=== PATIENT | female | born 1955 | race Caucasian/White ===

== ENCOUNTER → 2016-08-31 | Outpatient (CLI) | payer BC ==
[2016-02-22 10:56] VITALS: BP 125/86
--- NOTE | 2016-08-31 14:27 | KCIC ---
PROCEDURE MRI cervical spine without contrast. HISTORY Stenosis. Left hand numbness. Left-sided neck pain and headaches. TECHNIQUE Sagittal T1, sagittal T2, sagittal STIR, axial T2, and axial T2 gradient sequences are provided. COMPARISON None. FINDINGS There is no malalignment. Edema is noted in the lateral masses at C3 and C4 on the left, probably degenerative. Facet hypertrophy is much greater on the left. There is no worrisome marrow lesion. There is no cord signal abnormality. The cervicomedullary junction is unremarkable. Degenerative findings by individual level are as follows: C2-C3: There is left facet hypertrophy with mild left foraminal narrowing. C3-C4: There is left facet hypertrophy, moderate, with at least mild to moderate left foraminal narrowing. C4-C5: There is mild to moderate left facet hypertrophy and mild left uncinate process spurring. There is mild left foraminal narrowing. C5-C6: There is a disc osteophyte complex. There is mild uncinate process spurring which is greater on the right. There is mild to moderate right foraminal narrowing. C6-C7: There is a disc osteophyte complex. There is minimal right and mild left uncinate process spurring. Midline AP diameter of the thecal sac is minimally narrowed to 10 millimeters. There is minimal foraminal narrowing. C7-T1: There is no canal or foraminal compromise. IMPRESSION Mild degenerative changes in the cervical spine are greatest at C5-C6 where there is minimal canal stenosis and mild to moderate right foraminal narrowing and at C3-C4 where there is mild to moderate left foraminal narrowing. Electronically signed by: Jac Hawkins MD (Aug 31, 2016 14:26:58)
== END | disposition home or self-care (01) ==
LOC: KCIC MRI 12:43
PROVIDERS: ATTEND Orthopaedic Surgery
DX: M48.02 Spinal stenosis, cervical region (principal)
CPT/HCPCS: 72141

== ENCOUNTER → 2016-11-14 | Outpatient (CLI) | payer BC ==
[2016-02-22 10:56] VITALS: BP 125/86
[~2016-11-14] MED LIST: ACET500T68 PO; ATOR40TA59 PO; CELE200C PO; GADOBUTROL 10 MMOL/10 ML VIAL IV ONE
--- NOTE | 2016-11-14 14:50 | KCIC ---
PROCEDURE MRI lumbar spine without contrast. HISTORY Chronic pain, right lower leg pain for several months TECHNIQUE Multiplanar, multi sequential non contrast MR imaging was performed of the lumbar spine. COMPARISON None FINDINGS There is mild grade 1 anterior spondylolisthesis at L5-S1. Lumbar vertebral body stature is preserved. There is mild to moderate degenerative disc disease at L5-S1 and minimally at L3-4 and L2-3. There is hemangioma of the T12 vertebral body. Conus terminates normally at T12-L1. L2-3: This level was not included on the axial images. There is minimal disc osteophyte complex and bulge. Spinal canal and neural foramina are adequate. L3-4: Spinal canal and neural foramina are adequate. There is very shallow protrusion in the inferior right neural foramen with associated annular tear without significant neural impingement. There is mild buckling of the ligamentum flavum. L4-5: There is mild buckling of the ligamentum flavum. There is minimal facet degenerative change. There is negligible bulge. Neural foramina are adequate. There is mild narrowing of the far left lateral recess. L5-S1: There is moderate facet degenerative change. There is mild partial uncovering of the posterior aspect of the disc due to spondylolisthesis. There is minimal superimposed disc osteophyte complex greater in the inferior left neural foramen. There is mild narrowing of the far right lateral recess. There is minimal narrowing of the inferior left neural foramen, right neural foramen adequate. IMPRESSION 1. There is no significant lumbar spinal stenosis, mild narrowing of the far right lateral recess at L5-S1 and of the far left lateral recess at L4-5. There is mild narrowing of the inferior left L5-S1 neural foramen. There is mild to moderate degenerative disc disease at L5-S1, minimally at L3-4 and L2-3. 2. There is very mild grade 1 anterior spondylolisthesis at L5-S1 due to facet degenerative change. Electronically signed by: James Vieira MD (Nov 14, 2016 14:49:35)
--- NOTE | 2016-11-14 15:27 | KCIC ---
PROCEDURE MRI brain without and with contrast. HISTORY Left arm pain, numbness from the left elbow to the wrist for several months TECHNIQUE Multiplanar, multi sequential, pre and post contrast MR imaging was performed of the brain. Contrast: 8 cc Gadavist COMPARISON May 15, 2009 FINDINGS There is no restricted diffusion suggestive of recent infarct or cytotoxic edema. There is no intra-axial mass effect, midline shift, extra-axial fluid collection, or nodular parenchymal or leptomeningeal enhancement. There is again mild T2 and FLAIR hyperintense signal abnormality of the supratentorial periventricular white matter bilaterally. There are multiple scattered small foci in the deep white matter greatest of the frontal parietal lobes overall more numerous than previously. These are not associated with enhancement. There is preservation of the major arterial intracranial flow voids at the skull base. There is right masood bullosa. There is new signal abnormality in the posterior sphenoid sinus, may be due to mucous retention cysts versus air-fluid levels. There is patchy mild fluid and thickening of the left mastoid air cells. There is preservation of the major arterial intracranial flow voids at the skull base. Ventricles, sulci, cisterns are within normal limits in size and configuration. There is preservation of the marrow signal of the clivus. Cerebellar tonsils are normal in location. There is no significant abnormality of the pineal gland or pituitary gland. There is nonspecific increased CSF signal of the optic nerve sheaths. Small focus of enhancement along the left tentorium is more likely due to more prominent veins than small mass. IMPRESSION 1. There are some scattered foci of T2 and FLAIR hyperintense signal abnormality of the frontal parietal white matter overall more numerous than the 2009 exam. White matter changes can be seen in patients with migraine headaches if corresponding history. Sequela of chronic microvascular ischemic disease would be a consideration especially if there is history of hypertension or diabetes. Pattern is not particularly suggestive of an inflammatory demyelinating disease. There is no abnormal intracranial enhancement. 2. There are now uterine dependent mucous retention cyst or air-fluid levels of the sphenoid sinus. Electronically signed by: James Vieira MD (Nov 14, 2016 15:25:59)
== END | disposition home or self-care (01) ==
LOC: KCIC MRI 13:33
PROVIDERS: ATTEND Psychiatry & Neurology Neurology
DX: M51.37 Other intervertebral disc degeneration, lumbosacral region (principal); M51.36 Other intervertebral disc degeneration, lumbar region; M43.17 Spondylolisthesis, lumbosacral region
CPT/HCPCS: 70553; 72148; A9585

== ENCOUNTER 2017-03-14 08:30 | Emergency (ER) | payer BC ==
[~2017-03-14] VITALS: Ht 162.6 cm; Wt 85.9 kg
[~2017-03-14 08:30] MED LIST changes: -GADOBUTROL 10 MMOL/10 ML VIAL IV ONE
[2017-03-14 08:39] VITALS: BP 170/90
--- NOTE | 2017-03-14 08:55 | ED.ADGEN ---
Past Medical History Past Medical History: Arthritis, High Cholesterol Past Surgical History: Appendectomy, Other Additional Past Surgical Histo: cyst removed L wrist, 2002 stomach SX, R forearm SX, R shoulder SX Additional Information: 1 ppd Alcohol Use: Rarely Drug Use: None Adult General Chief Complaint Chief Complaint: MECHANICAL FALL HPI HPI Patient is a 61 year old female who presents with persistent left wrist pain after falling 1 week ago. Patient has been treating pain with the splint and [id number] medication. Patient's concerned because continues to hurt. Denies motor weakness loss of sensation. No other symptoms or complaints. Review of Systems Review of Systems Review symptoms as per history of present illness. All other review symptoms are negative. Allergies Allergies Allergies Coded Allergies Type Severity Reaction Last Updated Verified No Known Drug Allergies 02/22/16 No Physical Exam Physical Exam Constitutional: Well developed, well nourished, no acute distress, non-toxic appearance. [] Extremities: Left wrist, no deformity, gross swelling. Soft tissue tenderness over the extensor is a proximal wrist. Minimal pain with range of motion. No tenderness in an anatomical snuffbox. [] Neurologic: Alert and oriented X 3, asked upper extremity, no motor weakness or loss of sensation. [] Current Patient Data Vital Signs Vital Signs Date Time Temp Pulse Resp B/P (MAP) Pulse Ox O2 Delivery O2 Flow Rate FiO2 03/14/17 08:39 98.2 94 16 95 Room Air 98.2 EKG EKG [] Radiology/Procedures Radiology/Procedures [] Course & Med Decision Making Course & Med Decision Making Pertinent Labs and Imaging studies reviewed. (See chart for details) [Persistent left wrist pain consistent with sprain or soft tissue injury. Patient declines supportive care in the ED. Recommend continued supportive measures and PCP follow up. . Piper Disclaimer Dragon Disclaimer This electronic medical record was generated, in whole or in part, using a voice recognition dictation system. SANDRA HERNANDEZ DO Mar 14, 2017 08:55
== END 2017-03-14 08:50 | disposition home or self-care (01) ==
LOC: ER 08:30
DX: M25.532 Pain in left wrist (principal); E78.00 Pure hypercholesterolemia, unspecified; M19.90 Unspecified osteoarthritis, unspecified site; F17.200 Nicotine dependence, unspecified, uncomplicated; Z90.49 Acquired absence of other specified parts of digestive tract; W18.39XA Other fall on same level, initial encounter; Y93.89 Activity, other specified; Y99.8 Other external cause status; Y92.89 Other specified places as the place of occurrence of the external cause
CPT/HCPCS: 99281

== ENCOUNTER 2018-11-09 15:20 | Emergency (ER) | payer BC ==
[~2018-11-09] VITALS: Ht 162.6 cm; Wt 90.7 kg
[2018-11-09] MEDS ORDERED: IPRATRPIUM/ALBUTEROL 0.5/2.5MG 3 ML NEBU. NEB ONE (15:45)
[2018-11-09] MEDS ORDERED: predniSONE 10 MG TABLET PO ONE (15:45)
[2018-11-09] MEDS ORDERED: IV NORMAL SALINE 1000ML BAG 1,000 ML IV ONE (15:45)
--- NOTE | 2018-11-09 15:49 | PHYS DOC ---
Past Medical History Past Medical History: Arthritis, High Cholesterol (DAVIDSON PANTOJA APRN) Past Surgical History: Appendectomy, Other Additional Past Surgical Histo: cyst removed L wrist, 2003 stomach SX, R forearm SX, R shoulder SX (DAVIDSON PANTOJA APRN) Alcohol Use: Rarely Drug Use: None (DAVIDSON PANTOJA APRN) Adult General Chief Complaint Chief Complaint: CHEST PAIN HPI HPI 63-year-old female presents to ER via POV for complaints of mid chest pressure which radiates into her shoulders. She reports pain has been ongoing intermittently for the past 5-6 days she reports pain radiates into bilateral shoulders. She reports pain increases with long walks and at rest pain improves. She denies any shortness of air, nausea, or diaphoresis. She reports she has had an intermittent nonproductive cough and is a daily smoker. Patient denies any recent travel/hx blood clots. She denies swelling, fever, urinary sxs or change in appetitie. She reports she was seen by her primary care physician last week and was told her H&H was elevated. He is scheduled with a project planner on 11/17/18. (DAVIDSON PANTOJA APRN) Review of Systems Review of Systems Constitutional: Denies fever or chills. Denies weakness Eyes: Denies change in visual acuity, redness, or eye pain [] HENT: Denies nasal congestion or sore throat [] Respiratory: Reports nonprod. cough with SOA- reporting SOA increases with walking Cardiovascular: Reports mid chest pressure which radiates into her shoulders GI: Denies abdominal pain, nausea, vomiting, bloody stools or diarrhea [] : Denies dysuria or hematuria [] Musculoskeletal: Denies back pain. Reports pressure in her chest radiates into shoulders when her SOA increases Integument: Denies rash or skin lesions [] Neurologic: Denies headache, focal weakness or sensory changes [] Endocrine: Denies polyuria or polydipsia [] All other systems were reviewed and found to be within normal limits, except as documented in this note. (DAVIDSON PANTOJA APRN) Current Medications Current Medications Current Medications Medications (Trade) Dose Ordered Sig/Suyapa Start Time Stop Time Status Last Admin Dose Admin Albuterol/ Ipratropium (Duoneb) 3 ml 1X ONCE 4/5/19 15:45 11/09/18 15:48 DC 11/09/18 16:01 3 ML Prednisone (Prednisone) 50 mg 1X ONCE 11/09/18 15:45 11/09/18 15:48 DC 11/09/18 16:40 50 MG Sodium Chloride 1,000 ml @ 1,000 mls/hr 1X ONCE 11/09/18 15:45 11/09/18 16:44 DC 11/09/18 16:39 1,000 MLS/HR (FERNANDO PERRY MD) Allergies Allergies Allergies Coded Allergies Type Severity Reaction Last Updated Verified No Known Drug Allergies 02/22/16 No (FERNANDO PERRY MD) Physical Exam Physical Exam Constitutional: Well developed, well nourished, no acute distress, non-toxic appearance. Clear speech- speaking in full sentences HENT: Normocephalic, atraumatic, bilateral ears normal, mucous membranes pink/ dry, no oral exudates, nose normal. [] Eyes: Pupils equal, conjunctiva normal, no discharge. [] Neck: Normal range of motion, no tenderness, supple, no stridor. Trachea midline Cardiovascular: Heart rate regular rhythm, no murmur [] Lungs & Thorax: Expiratory wheezing RUL- diminished air movement throughout all lung enriquez w/less air movement in bases. Resp. equal/nonlabored Abdomen: Bowel sounds normal, soft, no tenderness, no masses, no pulsatile masses. [] Skin: Warm, dry, no erythema, no rash. [] Back: No tenderness, no CVA tenderness. [] Extremities: No tenderness, no cyanosis, no clubbing, ROM intact, no edema. [] Neurologic: Alert and oriented X 3, normal motor function, normal sensory function, no focal deficits noted. [] Psychologic: Affect normal, judgement normal, mood normal. [] (REFFITT,DAVIDSON Segura APRN) Current Patient Data Vital Signs Vital Signs Date Time Temp Pulse Resp B/P (MAP) Pulse Ox O2 Delivery O2 Flow Rate FiO2 11/09/18 17:30 86 17 140/79 (99) 94 Room Air 11/09/18 15:30 98.4 98.4 (FERNANDO PERRY MD) Lab Values Laboratory Tests Test 11/09/18 16:50 11/09/18 17:30 White Blood Count 9.4 x10^3/uL (4.0-11.0) Red Blood Count 4.94 x10^6/uL (3.50-5.40) Hemoglobin 15.9 g/dL (12.0-15.5) H Hematocrit 47.2 % (36.0-47.0) H Mean Corpuscular Volume 96 fL (79-100) Mean Corpuscular Hemoglobin 32 pg (25-35) Mean Corpuscular Hemoglobin Concent 34 g/dL (31-37) Red Cell Distribution Width 13.6 % (11.5-14.5) Platelet Count 260 x10^3/uL (140-400) Neutrophils (%) (Auto) 58 % (31-73) Lymphocytes (%) (Auto) 30 % (24-48) Monocytes (%) (Auto) 7 % (0-9) Eosinophils (%) (Auto) 3 % (0-3) Basophils (%) (Auto) 1 % (0-3) Neutrophils # (Auto) 5.5 x10^3uL (1.8-7.7) Lymphocytes # (Auto) 2.8 x10^3/uL (1.0-4.8) Monocytes # (Auto) 0.7 x10^3/uL (0.0-1.1) Eosinophils # (Auto) 0.3 x10^3/uL (0.0-0.7) Basophils # (Auto) 0.1 x10^3/uL (0.0-0.2) Sodium Level 145 mmol/L (136-145) Potassium Level 4.1 mmol/L (3.5-5.1) Chloride Level 106 mmol/L (98-107) Carbon Dioxide Level 28 mmol/L (21-32) Anion Gap 11 (6-14) Blood Urea Nitrogen 10 mg/dL (7-20) Creatinine 0.8 mg/dL (0.6-1.0) Estimated GFR (Cockcroft-Gault) 72.7 BUN/Creatinine Ratio 13 (6-20) Glucose Level 104 mg/dL (70-99) H Calcium Level 9.5 mg/dL (8.5-10.1) Magnesium Level 2.3 mg/dL (1.8-2.4) Total Bilirubin 0.4 mg/dL (0.2-1.0) Aspartate Amino Transferase (AST) 24 U/L (15-37) Alanine Aminotransferase (ALT) 31 U/L (14-59) Alkaline Phosphatase 94 U/L (46-116) Troponin I Quantitative < 0.017 ng/mL (0.000-0.055) Total Protein 7.0 g/dL (6.4-8.2) Albumin 3.5 g/dL (3.4-5.0) Albumin/Globulin Ratio 1.0 (1.0-1.7) Urine Collection Type Unknown Urine Color Yellow Urine Clarity Clear Urine pH 6.0 Urine Specific [place] <=1.005 Urine Protein Negative mg/dL (NEG-TRACE) Urine Glucose (UA) Negative mg/dL (NEG) Urine Ketones (Stick) Negative mg/dL (NEG) Urine Blood Negative (NEG) Urine Nitrite Negative (NEG) Urine Bilirubin Negative (NEG) Urine Urobilinogen Dipstick 0.2 mg/dL (0.2 mg/dL) Urine Leukocyte Esterase Small (NEG) Urine RBC 0 /HPF (0-2) Urine WBC 11-20 /HPF (0-4) Urine Squamous Epithelial Cells Few /LPF Urine Bacteria Few /HPF (0-FEW) Laboratory Tests 11/09/18 16:50 Laboratory Tests 11/09/18 16:50 Microbiology 11/09/18 Urine Culture - Final, Complete 11/09/18 Urine Culture Result 1 (ELIUD) - Final, Complete 11/09/18 Antimicrobic Susceptibility - Final, Complete (FERNANDO PERRY MD) Lab Values Microbiology 11/09/18 Urine Culture - Preliminary, Resulted 11/09/18 Urine Culture Result 1 (ELIUD) - Preliminary, Resulted (DAVIDSON PANTOJA APRN) EKG EKG Ekg obtained 11/09/18 at 1533 Interpreted by ER physician Sinus rhythm Rate 91 No STEMI (DAVIDSON PANTOJA APRN) Radiology/Procedures Radiology/Procedures PROCEDURE: CHEST PA & LATERAL CHEST PA LATERAL History: MID CHEST PRESSURE / PAIN Comparison: Two-view chest, May 15, 2009. Findings: The cardiomediastinal silhouette is normal. Pulmonary vasculature is normal. The lungs are clear. No pleural effusion or pneumothorax is seen. There is no acute bone abnormality. IMPRESSION: No acute cardiopulmonary process. Electronically signed by: Michael Soares MD (11/09/2018:06 PM) [id number] DICTATED and SIGNED BY: MICHAEL SOARES MD DATE: 11/09/18 5657 (DAVIDSON PANTOJA APRN) Course & Med Decision Making Course & Med Decision Making Pertinent Labs and Imaging studies reviewed. (See chart for details) Pt evaluated in the ER from the chest pressure which radiated into her shoulders which is been ongoing for 4-5 days. Patient was found to have decreased air movement throughout all lung enriquez with expiratory wheezing on initial exam. Patient was provided with DuoNeb treatment and dose of prednisone with improved symptoms. Patient had labs and chest x-ray. Labs elevated H&H which patient reported she has scheduled appointment with project planner as her H& H has been elevated all recent labs. Patient had EKG with no acute ST elevated < 0.017. Pt reported she is a daily smoker so smoking cessation was discussed. Discussed with symptoms ongoing for 4-5 days and negative troponin plans were for home discharge prescription for prednisone which she will start tomorrow. Patient encouraged to increase fluid intake. Chest x-ray was negative for acute findings. At time of reevaluation and after DuoNeb treatment patient has clear lung sounds in all enriquez with no expiratory wheezing and increased air movement. Patient has appointment scheduled with her project planner on 11/17/18 to further evaluate her elevated H&H. Patient has been afebrile. She reports she has had recurrent bronchitis throughout the when her at this time with clear lung sounds and patient having improved symptoms will hold off on antibiotic treatment.Education provided on signs and symptoms to return to ER. Discharge instructions were discussed. Patient to follow-up with primary care physician if symptoms persist or with any concerns. 11/12/18 3375: Patient had been seen in the ER on 11/09/18 and had UA obtained just prior to discharge from the ER. On further evaluation of her chart UA came back with small leuks negative nitrates or blood and Celestino had 11-20 WBCs. Call was placed to patient to discuss her UA results. Patient reports her other symptoms had improved with less chest pressure following a few days of prednisone. She reports she has follow-up appointment scheduled tomorrow with her primary care physician. She has had intermittent dysuria over the past couple of weeks discussed antibiotics and will: Prescription for patient to [facility] phone number [phone] for Keflex 500 mg by mouth 7 days. Patient advised to discuss this with her doctor and have reevaluation following completion of antibiotics. Patient advised with concerns she could return to ER for reevaluation and further care. (DAVIDSON PANTOJA APRN) Course & Med Decision Making Staff Physician Addendum: I was working in the ER during the course of this patient's visit. I was available for consultation as needed, but I was not directly involved in the care of this patient. (FERNANDO PERRY MD) Dragon Disclaimer Dragon Disclaimer This electronic medical record was generated, in whole or in part, using a voice recognition dictation system. (DAVIDSON PANTOJA APRN) Departure Departure Impression: Primary Impression: Chest pain Additional Impression: Cough Disposition: 01 HOME, SELF-CARE Condition: STABLE Referrals: ROSSANA GRANADO DO (PCP) Patient Instructions: Chest Pain (Nonspecific), Cough, Adult Additional Instructions: Drink plenty of fluids. Avoid smoking. Start prednisone prescription tomorrow. Follow-up with your primary doctor if symptoms persist or worsen. Tylenol and/or ibuprofen as needed for pain as directed on container. Scripts Prednisone (PREDNISONE) 50 Mg Tablet 1 TAB PO DAILY, #4 TAB 0 Refills Start on 11/10/18 Prov: DAVIDSON PANTOJA APRN 11/09/18 Problem Qualifiers DAVIDSON PANTOJA APRN Nov 09, 2018 15:49 FERNANDO PERRY MD Nov 21, 2018 18:29
--- NOTE | 2018-11-09 16:07 | EKG ---
[facility] [address] [place] [address] Test Date: 2018-11-09 Test Time: 15:33:50 Pat Name: RUSH ROBLES Department: Room: Gender: F Senior Strategy Analyst: : [id number] Requested By: DAVIDSON PANTOJA Order Number: [id number] Reading MD: Vito Schreiber MD Measurements Intervals [place] Rate: 91 P: 49 CO: 154 QRS: 9 QRSD: 88 T: 66 QT: 348 QTc: 430 Interpretive Statements SINUS RHYTHM LEFT ATRIAL ABNORMALITY QRS(T) CONTOUR ABNORMALITY CONSISTENT WITH ANTEROSEPTAL INFARCT AGE UNDETERMINED T ABNORMALITY IN HIGH LATERAL LEADS ABNORMAL ECG Electronically Signed On 11-13-2018 15:11:40 CDT by Vito Schreiber MD
--- NOTE | 2018-11-09 16:09 | RAD ---
CHEST PA LATERAL History: MID CHEST PRESSURE / PAIN Comparison: Two-view chest, May 15, 2009. Findings: The cardiomediastinal silhouette is normal. Pulmonary vasculature is normal. The lungs are clear. No pleural effusion or pneumothorax is seen. There is no acute bone abnormality. IMPRESSION: No acute cardiopulmonary process. Electronically signed by: Michael Soares MD (11/09/2018 4:06 PM) [id number]
[2018-11-09 17:00] LABS: BASO # 0.1 x10^3/uL (0.0-0.2); BASO % 1 % (0-3); EOS # 0.3 x10^3/uL (0.0-0.7); EOS % 3 % (0-3); HEMATOCRIT 47.2 % (36.0-47.0); HEMOGLOBIN 15.9 g/dL (12.0-15.5); LYMPH # 2.8 x10^3/uL (1.0-4.8); LYMPH % 30 % (24-48); MEAN CORPUSCULAR HEMOGLOBIN 32 pg (25-35); MEAN CORPUSCULAR HGB CONC 34 g/dL (31-37); MEAN CORPUSCULAR VOLUME 96 fL (79-100); MONO # 0.7 x10^3/uL (0.0-1.1); MONO % 7 % (0-9); NEUT # 5.5 x10^3uL (1.8-7.7); NEUT % 58 % (31-73); PLATELET COUNT 260 x10^3/uL (140-400); RED BLOOD COUNT 4.94 x10^6/uL (3.50-5.40); RED CELL DISTRIBUTION WIDTH 13.6 % (11.5-14.5); WHITE BLOOD COUNT 9.4 x10^3/uL (4.0-11.0)
[2018-11-09 17:10] LABS: CALCIUM 9.5 mg/dL (8.5-10.1); CREATININE 0.8 mg/dL (0.6-1.0); GFR 72.7; POTASSIUM 4.1 mmol/L (3.5-5.1)
[2018-11-09 17:16] LABS: ALBUMIN 3.5 g/dL (3.4-5.0); MAGNESIUM 2.3 mg/dL (1.8-2.4); TOTAL BILIRUBIN 0.4 mg/dL (0.2-1.0)
[2018-11-09 17:30] VITALS: BP 140/79
[2018-11-09 17:36] LABS: BILIRUBIN,URINE NEGATIVE (NEG); CLARITY,URINE CLEAR; COLOR,URINE YELLOW; NITRITE,URINE NEGATIVE (NEG); PROTEIN,URINE NEGATIVE (NEG-TRACE); UROBILINOGEN,URINE 0.2 mg/dL (0.2 mg/dL)
[2018-11-09 17:48] LABS: BACTERIA,URINE FEW /HPF (0-FEW); RBC,URINE 0 /HPF (0-2)
[2018-11-09 17:49] LABS: SQUAMOUS EPITHELIAL CELL,UR FEW /LPF
[2018-11-09] MEDS ORDERED: PRED50TA PO (17:51)
== END 2018-11-09 18:00 | disposition home or self-care (01) ==
LOC: ER 15:20
DX: R07.89 Other chest pain (principal); R05 Cough; M19.90 Unspecified osteoarthritis, unspecified site; E78.00 Pure hypercholesterolemia, unspecified; Z90.89 Acquired absence of other organs
CPT/HCPCS: 36415; 71046; 80053; 81001; 83735; 84484; 85025; 87086; 93005; 94640; 99284; J7030; J7512; J7620; 87186

== ENCOUNTER 2020-10-06 19:03 | Observation (INO) | payer BC ==
[~2020-10-06] VITALS: Ht 162.6 cm; Wt 97.5 kg
[~2020-10-06 19:03] MED LIST changes: +PRED50TA PO
[2020-10-06] MEDS ORDERED: IV NORMAL SALINE 1000ML BAG 1,000 ML IV ONE (19:15)
[2020-10-06 19:36] LABS: BASO # 0.1 x10^3/uL (0.0-0.2); BASO % 1 % (0-3); EOS # 0.2 x10^3/uL (0.0-0.7); EOS % 2 % (0-3); HEMATOCRIT 46.6 % (36.0-47.0); LYMPH % 28 % (24-48); MEAN CORPUSCULAR HEMOGLOBIN 33 pg (25-35); MEAN CORPUSCULAR HGB CONC 34 g/dL (31-37); MEAN CORPUSCULAR VOLUME 97 fL (79-100); MONO # 0.7 x10^3/uL (0.0-1.1); MONO % 7 % (0-9); NEUT # 6.5 x10^3/uL (1.8-7.7); NEUT % 62 % (31-73); PLATELET COUNT 309 x10^3/uL (140-400); RED BLOOD COUNT 4.82 x10^6/uL (3.50-5.40); RED CELL DISTRIBUTION WIDTH 14.5 % (11.5-14.5); WHITE BLOOD COUNT 10.5 x10^3/uL (4.0-11.0)
[2020-10-06 19:45] LABS: PROTHROMBIN TIME PATIENT 11.9 SEC (11.7-14.0)
--- NOTE | 2020-10-06 19:58 | PHYS DOC ---
Past Medical History Past Medical History: Arthritis, High Cholesterol Additional Past Medical Histor: heart murmur, left arm nerve issues Past Surgical History: Appendectomy, Tonsillectomy, Other Additional Past Surgical Histo: cyst removed L wrist, 2003 stomach SX, R forearm SX, R shoulder SX Smoking Status: Current Every Day Smoker Alcohol Use: Rarely Drug Use: None General Adult EDM: Chief Complaint: CHEST PAIN HPI: HPI: Patient is a 65-year-old female with a history of high cholesterol who presents to the emergency department with complaints of chest pain. She states the pain began 2 months ago, occurs while she is walking her dog and subsides when she rests. States the pain always last less than 5 minutes. She states the pain is a central chest sharpness with no radiation. She denies any symptoms associated with the pain. She states she has had a stress test many years ago and does not remember the results. She does have a family history of heart disease in her grandparents, parents, brother. She is a current every day smoker and has been for the past 40 years. She denies any recent long distance travel, personal history of malignancy, previous history of PE/DVT, or surgeries in the last 4 weeks. Denies trauma. Denies cough. Denies known exposure to COVID-19. Review of Systems: Review of Systems: Constitutional: Denies fever or chills Eyes: Denies redness or eye pain HENT: Denies nasal congestion or sore throat Respiratory: Denies cough or shortness of breath Cardiovascular: Admits chest pain, denies palpitations GI: Denies abdominal pain, nausea, or vomiting : Denies dysuria or hematuria Musculoskeletal: Denies back pain or joint pain Integument: Denies rash or skin lesions Neurologic: Denies headache, focal weakness or sensory changes Complete systems were reviewed and found to be within normal limits, except as documented in this note. Heart Score: HEART Score for Chest Pain: HEART Score for Chest Pain Response (Comments) Value History Moderately Suspicious 1 ECG Normal 0 Age >45 - < 65 1 Risk Factors >3 Risk Factors or Hx CAD 2 Troponin < Normal Limit 0 Total 4 Risk Factors: Risk Factors: DM, Current or recent (<one month) smoker, HTN, HLP, family history of CAD, obesity. Risk Scores: Score 0 - 3: 2.5% MACE over next 6 weeks - Discharge Home Score 4 - 6: 20.3% MACE over next 6 weeks - Admit for Clinical Observation Score 7 - 10: 72.7% MACE over next 6 weeks - Early Invasive Strategies Family History: Family History: Unspecified heart disease in grandparents, parents, brother Current Medications: Current Medications Medications (Trade) Dose Ordered Sig/Suyapa Start Time Stop Time Status Last Admin Dose Admin Sodium Chloride 1,000 ml @ 1,000 mls/hr 1X ONCE 10/06/20 19:15 10/06/20 20:14 Allergies: Allergies: Allergies Coded Allergies Type Severity Reaction Last Updated Verified No Known Drug Allergies 02/22/16 No Physical Exam: PE: Constitutional: Well developed, well nourished, no acute distress, non-toxic appearance HENT: Normocephalic, atraumatic Eyes: Conjunctiva normal, no discharge Neck: Normal range of motion, no tenderness, supple Lungs & Thorax: No respiratory distress, equal chest rise and fall Abdomen: Soft, no tenderness Skin: Warm, dry, no erythema, no rash Extremities: No tenderness, ROM intact, no edema Neurologic: Alert and oriented X 3, no focal deficits noted Psychologic: Affect normal, judgment normal Current Patient Data: Labs: Laboratory Tests Test 10/06/20 19:15 White Blood Count 10.5 x10^3/uL (4.0-11.0) Red Blood Count 4.82 x10^6/uL (3.50-5.40) Hemoglobin 16.0 g/dL (12.0-15.5) H Hematocrit 46.6 % (36.0-47.0) Mean Corpuscular Volume 97 fL (79-100) Mean Corpuscular Hemoglobin 33 pg (25-35) Mean Corpuscular Hemoglobin Concent 34 g/dL (31-37) Red Cell Distribution Width 14.5 % (11.5-14.5) Platelet Count 309 x10^3/uL (140-400) Neutrophils (%) (Auto) 62 % (31-73) Lymphocytes (%) (Auto) 28 % (24-48) Monocytes (%) (Auto) 7 % (0-9) Eosinophils (%) (Auto) 2 % (0-3) Basophils (%) (Auto) 1 % (0-3) Neutrophils # (Auto) 6.5 x10^3/uL (1.8-7.7) Lymphocytes # (Auto) 3.0 x10^3/uL (1.0-4.8) Monocytes # (Auto) 0.7 x10^3/uL (0.0-1.1) Eosinophils # (Auto) 0.2 x10^3/uL (0.0-0.7) Basophils # (Auto) 0.1 x10^3/uL (0.0-0.2) Laboratory Tests 10/06/20 19:15 Vital Signs: Vital Signs Date Time Temp Pulse Resp B/P (MAP) Pulse Ox O2 Delivery O2 Flow Rate FiO2 10/06/20 19:04 98.3 91 18 164/88 (113) 94 Room Air 98.3 EKG: EK. Normal sinus rhythm rate of 96 bpm. Normal axis. T wave inversions in lead I and aVL. No ST segment elevations or depressions. QTQTc 336 ms - 425 ms. Radiology/Procedures: Radiology/Procedures: PROCEDURE: CHEST AP ONLY Exam: Chest one view INDICATION: Chest pain TECHNIQUE: Frontal view of the chest Comparisons: 11/09/2018 FINDINGS: The cardiomediastinal silhouette and pulmonary vessels are within normal limits. The lung and pleural spaces are clear. IMPRESSION: No acute cardiopulmonary process. Electronically signed by: Katie Logan MD (10/06/2020 10:26 PM) [facility] Course & Med Decision Making: Course & Med Decision Making Patient is a 65 y/o female with a family history of heart disease, high cholesterol and is an every day smoker who presents with chest pain. Concern for possible angina. EKG stable. Labs obtained and posted to chart. Troponin WNL. D-dimer WNL. CXR without acute process. Pertinent Labs and Imaging studies reviewed. (See chart for details) HEART score 4. Patient requiring observation admission for further evaluation and treatment given risk factors. Discussed with Dr. Castle (hospitalist) who is in agreement with admission. Discussed findings and plan with patient and family, who acknowledge understanding and agreement. Dragon Disclaimer: Dragon Disclaimer: This electronic medical record was generated, in whole or in part, using a voice recognition dictation system. Departure Departure Impression: Primary Impression: Chest pain Qualified Codes: R07.9 - Chest pain, unspecified Disposition: 09 ADMITTED INPT THIS HOSP (Observation) Admitting Physician: MARISSA (Tin) Condition: STABLE Referrals: ,ROSSANA Dawn DO (PCP) CHIARA SYLVESTER DO Oct 06, 2020 19:58
[2020-10-06 20:16] LABS: BILIRUBIN,URINE NEGATIVE (NEG); CLARITY,URINE CLOUDY; COLOR,URINE YELLOW; NITRITE,URINE NEGATIVE (NEG); PH,URINE 6.5 (<5.0-8.0); PROTEIN,URINE NEGATIVE (NEG-TRACE); UROBILINOGEN,URINE 0.2 mg/dL (0.2 mg/dL)
[2020-10-06 20:28] LABS: D-DIMER 0.4 ug/mlFEU (0.00-0.50)
[2020-10-06 20:28] LABS: CALCIUM 8.9 mg/dL (8.5-10.1); CREATININE 0.8 mg/dL (0.6-1.0); GFR 72.2; POTASSIUM 3.9 mmol/L (3.5-5.1)
[2020-10-06 20:31] LABS: RBC,URINE 0 /HPF (0-2)
[2020-10-06 20:32] LABS: BACTERIA,URINE 0 /HPF (0-FEW); YEAST,URINE PRESENT /HPF
[2020-10-06 20:35] LABS: ALBUMIN 3.2 g/dL (3.4-5.0); ALBUMIN/GLOBULIN RATIO 0.8 (1.0-1.7); MAGNESIUM 2.1 mg/dL (1.8-2.4); TOTAL BILIRUBIN 0.4 mg/dL (0.2-1.0)
--- NOTE | 2020-10-06 21:41 | EKG ---
[facility] [address] [place] [address] Test Date: 2020-10-06 Test Time: 19:11:56 Pat Name: RUSH ROBLES Department: Room: Gender: F Engine Builder: : [id number] Requested By: CHIARA SYLVESTER Order Number: [id number] Reading MD: Measurements Intervals [place] Rate: 96 P: 55 WA: 152 QRS: 24 QRSD: 90 T: 89 QT: 336 QTc: 425 Interpretive Statements SINUS RHYTHM QRS(T) CONTOUR ABNORMALITY CONSISTENT WITH ANTEROSEPTAL INFARCT PROBABLY OLD T ABNORMALITY IN HIGH LATERAL LEADS ABNORMAL ECG RI6.02 No previous ECG available for comparison
[2020-10-06] MEDS ORDERED: fentaNYL PF VIAL 100 MCG/2 ML VIAL IV PRN (22:00)
[2020-10-06] MEDS ORDERED: ONDANSETRON PF 4 MG/2 ML VIAL. IV PRN (22:00)
--- NOTE | 2020-10-06 22:28 | RAD ---
Exam: Chest one view INDICATION: Chest pain TECHNIQUE: Frontal view of the chest Comparisons: 11/09/2018 FINDINGS: The cardiomediastinal silhouette and pulmonary vessels are within normal limits. The lung and pleural spaces are clear. IMPRESSION: No acute cardiopulmonary process. Electronically signed by: Katie Logan MD (10/06/2020 10:26 PM) [facility]
[2020-10-06 23:00] VITALS: BP 172/89
[2020-10-07] MEDS ORDERED: DULO30CA44 PO (00:37)
[2020-10-07] MEDS ORDERED: PANT40TA6 PO (00:37)
[2020-10-07] MEDS ORDERED: VARE1TAB21 PO (00:37)
[2020-10-07] MEDS ORDERED: ASPI-630 PO (00:37)
[2020-10-07] MEDS ORDERED: CLOB15CR27 TP (00:37)
[2020-10-07] MEDS ORDERED: GABA300C9 PO (00:37)
[2020-10-07] MEDS ORDERED: ESTR50GE TP (00:37)
[2020-10-07] MEDS ORDERED: ACET325T9 PO (00:37)
[2020-10-07] MEDS ORDERED: FLUT1BLS3 INH (00:37)
[2020-10-07] MEDS ORDERED: CALC1CAP7 PO (01:00)
[2020-10-07] MEDS ORDERED: DICL100G54 TP (01:00)
[2020-10-07] MEDS ORDERED: DOCU-109 PO (01:00)
[2020-10-07] MEDS ORDERED: VITA1TAB31 PO (01:00)
[2020-10-07] MEDS ORDERED: OMEG1CAP50 PO (01:00)
[2020-10-07 03:00] VITALS: BP 148/80
[2020-10-07 07:00] VITALS: BP 164/72
[2020-10-07] MEDS ORDERED: ACETAMINOPHEN 325 MG TABLET. PO PRN (07:15)
--- NOTE | 2020-10-07 07:15 | PDOC1 ---
History and Physical Date of Admission Date of Admission DATE: 10/07/20 TIME: 06:50 Identification/Chief Complaint Chief Complaint Chest pain Source Source: Patient History of Present Illness History of Present Illness Ms Martinez is a 65-year-old female with a history of high cholesterol, arthritis, smoker who presents to the emergency department with complaints of chest pain. She states the pain began 2 months ago, occurs while she is walking her dog and subsides when she rests. States the pain always last less than 5 minutes. She states the pain is a central chest sharpness with no radiation. She denies any symptoms associated with the pain. She states she has had a stress test many years ago and does not remember the results. She does have a family history of heart disease in her grandparents, parents, brother. She is a current every day smoker and has been for the past 40 years. She denies any recent long distance travel, personal history of malignancy, previous history of PE/DVT, or surgeries in the last 4 weeks. Denies trauma. Denies cough. Denies known exposure to COVID-19. 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 Initial troponins negative. CBC within normal laboratory limits coagulation studies within normal laboratory limits comprehensive metabolic panel within normal laboratory limits with exception of glucose elevated at 150 brain natruretic peptide 137. Urinalysis bland though it did have squamous epithelial cells and moderate leukocyte esterase. She does note historically that her mother and father both had a CVA near age 70. She also notes that she is taking Chantix to try to quit smoking. She also notes history of esophageal strictures and does see Dr. Brayan Hudson outpatient and has had previous esophageal dilation and does take a PPI for poorly controlled GERD. Admitted for further observation. Past Medical History Cardiovascular: Hyperlipidemia Past Surgical History Past Surgical History cyst removed L wrist, 2003 stomach SX, R forearm SX, R shoulder SX Past Surgical History: Appendectomy, Tonsillectomy Family History Family History: High Cholestrol, Hypertension, Esophagitis, Stroke Social History Smoke: <1 pack per day ALCOHOL: none Drugs: None Current Problem List Problem List Problems Medical Problems: (1) Chest pain Status: Acute Current Medications Current Medications Current Medications Sodium Chloride 1,000 ml @ 1,000 mls/hr 1X ONCE IV Last administered on 10/06/20at 20:07; Start 10/06/20 at 19:15; Stop 10/06/20 at 20:14; Status DC Ondansetron HCl (Zofran) 4 mg PRN Q8HRS PRN IV NAUSEA/VOMITING 1ST CHOICE; Start 10/06/20 at 22:00; Stop 10/07/20 at 21:59 Fentanyl Citrate (Fentanyl 2ml Vial) 25 mcg PRN Q2HRS PRN IV SEVERE PAIN 7-10; Start 10/06/20 at 22:00 Active Scripts Active Reported Voltaren (Diclofenac Sodium) 100 Gm Gel..gram. 1 Gm TP QID 30 Days apply to affected area(s) Calcium 600 + Vit D 400 Softgl (Calcium Carbonate/Vitamin D3) 1 Each Capsule 1 Each PO DAILY D3 + K2 Dots 1,000 Units Tab (Vitamin D3/Vitamin K2) 1 Each Tab.rapdis 1 Tab PO DAILY 30 Days Fish Oil 1,000 Mg Softgel (Holcomb-3 Fatty Acids/Fish Oil) 1 Each Capsule 1 Cap PO DAILY 30 Days Colace (Docusate Sodium) 100 Mg Capsule 1 Cap PO BID 30 Days Aspirin 81 Mg Tab.chew 1 Tab PO DAILY Tylenol (Acetaminophen) 325 Mg Tablet 1-2 Tab PO QID Estrogel (Estradiol) 50 Gm Gel.oracle bpm developer 1 Mary TP QMTH 30 Days Gabapentin 300 Mg Capsule 2 Cap PO TID PRN Clobetasol Emollient 0.05% Crm (Clobetasol Propionate/Emoll) 15 Gm Cream..g. 1 TP BID Chantix (Varenicline Tartrate) 1 Mg Tablet 1 Tab PO BID Trelegy Ellipta 100-62.5-25 (Fluticasone/Umeclidin/Vilanter) 1 Each Blst.w.dev 1 Puff INH DAILY Pantoprazole Sodium 40 Mg Tablet.dr 1 Tab PO DAILY Duloxetine Hcl 30 Mg Capsule.dr 30 Mg PO DAILY08 Atorvastatin Calcium 40 Mg Tablet Unknown Dose PO HS Celebrex (Celecoxib) 200 Mg Capsule 200 Mg PO DAILY06 30 Days Allergies Allergies: Coded Allergies: Iodinated Contrast Media (Verified Allergy, Severe, 10/06/20) doxycycline (Verified Allergy, Intermediate, 10/06/20) Joint swelling ROS General: YES: Fatigue, Malaise; No: Chills, Night Sweats, Appetite, Other PSYCHOLOGICAL ROS: No: Anxiety, Behavioral Disorder, Concentration difficultie, Decreased libido, Depression, Disorientation, Hallucinations, Hostility, Irritablity, Memory difficulties, Mood Swings, Obsessive thoughts, Physical abuse, Sexual abuse, Sleep disturbances, Suicidal ideation, Other Eyes: No Blurry vision, No Decreased vision, No Double vision, No Dry eyes, No Excessive tearing, No Eye Pain, No Itchy Eyes, No Loss of vision, No Photophobia, No Scotomata, No Uses contacts, No Uses glasses, No Other HEENT: No: Heacaches, Visual Changes, Hearing change, Nasal congestion, Nasal discharge, Oral lesions, Sinus pain, Sore Throat, Epistaxis, Sneezing, Snoring, Tinnitus, Vertigo, Vocal changes, Other ALLERGY AND IMMUNOLOGY: No: Hives, Insect Bite Sensitivity, Itchy/Watery Eyes, Nasal Congestion, Post Nasal Drip, Seasonal Allergies, Other Hematological and Lymphatic: No: Bleeding Problems, Blood Clots, Blood Transfusions, Brusing, Night Sweats, Pallor, Swollen Lymph Nodes, Other ENDOCRINE: No: Breast Changes, Galactorrhea, Hair Pattern Changes, Hot Flashes, Malaise/lethargy, Mood Swings, Palpitations, Polydipsia/polyuria, Skin Changes, Temperature Intolerance, Unexpected Weight Changes, Other Breast: No New/Changing Breast Lumps, No Nipple changes, No Nipple discharge, No Other Respiratory: YES: Shortness of breath; No: Cough, Hemoptysis, Orthopnea, Pleuritic Pain, SOB with excertion, Sputum Changes, Stridor, Tachypnea, Wheezing, Other Cardiovascular: yes Chest Pain; No Palpitations, No Orthopnea, No Paroxysmal Noc. Dyspnea, No Edema, No Lt H eadedness, No Other Gastrointestinal: No Nausea, No Vomiting, No Abdominal Pain, No Diarrhea, No Constipation, No Melena, No Hematochezia, No Other Genitourinary: No Dysuria, No Frequency, No Incontinence, No Hematuria, No Retention, No Discharge, No Urgency, No Pain, No Flank Pain, No Other, No , No , No , No , No , No , No Musculoskeletal: No Gait Disturbance, No Joint Pain, No Joint Stiffness, No Joint Swelling, No Muscle Pain, No Muscular Weakness, No Pain In:, No Swelling In:, No Other Neurological: No Behavorial Changes, No Bowel/Bladder ControlChng, No Confusion, No Dizziness, No Gait Disturbance, No Headaches, No Impaired Coord/balance, No Memory Loss, No Numbness/Tingling, No Seizures, No Speech Problems, No Tremors, No Visual Changes, No Weakness, No Other Skin: No Dry Skin, No Eczema, No Hair Changes, No Lumps, No Mole Changes, No Mottling, No Nail Changes, No Pruritus, No Rash, No Skin Lesion Changes, No Other, No Acne Physical Exam General: Alert, Oriented X3, Cooperative, No acute distress HEENT: Atraumatic, PERRLA, EOMI, Mucous membr. moist/pink Lungs: Clear to auscultation, Normal air movement Heart: S1S2, RRR, no thrills, no rubs, no gallops, no murmurs Abdomen: Normal bowel sounds, Soft, No tenderness, No hepatosplenomegaly, No masses Rectal Exam: not examined Extremities: No clubbing, No cyanosis, No edema, Normal pulses, No tenderness/swelling Skin: No rashes, No breakdown, No significant lesion Neuro: Normal gait, Normal speech, Strength at 5/5 X4 ext, Normal tone, Sensation intact, Cranial nerves 3-12 NL, Reflexes 2+ Psych/Mental Status: Mental status NL, Mood NL Vitals Vitals Vital Signs Date Time Temp Pulse Resp B/P (MAP) Pulse Ox O2 Delivery O2 Flow Rate FiO2 10/07/20 03:00 98.6 93 18 148/80 (102) 93 Room Air 98.6 Labs Labs Laboratory Tests Test 10/06/20 19:15 10/06/20 19:55 10/06/20 20:05 10/06/20 22:00 White Blood Count 10.5 x10^3/uL (4.0-11.0) Red Blood Count 4.82 x10^6/uL (3.50-5.40) Hemoglobin 16.0 g/dL (12.0-15.5) Hematocrit 46.6 % (36.0-47.0) Mean Corpuscular Volume 97 fL (79-100) Mean Corpuscular Hemoglobin 33 pg (25-35) Mean Corpuscular Hemoglobin Concent 34 g/dL (31-37) Red Cell Distribution Width 14.5 % (11.5-14.5) Platelet Count 309 x10^3/uL (140-400) Neutrophils (%) (Auto) 62 % (31-73) Lymphocytes (%) (Auto) 28 % (24-48) Monocytes (%) (Auto) 7 % (0-9) Eosinophils (%) (Auto) 2 % (0-3) Basophils (%) (Auto) 1 % (0-3) Neutrophils # (Auto) 6.5 x10^3/uL (1.8-7.7) Lymphocytes # (Auto) 3.0 x10^3/uL (1.0-4.8) Monocytes # (Auto) 0.7 x10^3/uL (0.0-1.1) Eosinophils # (Auto) 0.2 x10^3/uL (0.0-0.7) Basophils # (Auto) 0.1 x10^3/uL (0.0-0.2) Prothrombin Time 11.9 SEC (11.7-14.0) Prothromb Time International Ratio 0.9 (0.8-1.1) Activated Partial Thromboplast Time 29 SEC (24-38) D-Dimer (Katherine) 0.40 ug/mlFEU (0.00-0.50) Sodium Level 143 mmol/L (136-145) Potassium Level 3.9 mmol/L (3.5-5.1) Chloride Level 105 mmol/L (98-107) Carbon Dioxide Level 29 mmol/L (21-32) Anion Gap 9 (6-14) Blood Urea Nitrogen 12 mg/dL (7-20) Creatinine 0.8 mg/dL (0.6-1.0) Estimated GFR (Cockcroft-Gault) 72.2 BUN/Creatinine Ratio 15 (6-20) Glucose Level 150 mg/dL (70-99) Calcium Level 8.9 mg/dL (8.5-10.1) Magnesium Level 2.1 mg/dL (1.8-2.4) Total Bilirubin 0.4 mg/dL (0.2-1.0) Aspartate Amino Transf (AST/SGOT) 32 U/L (15-37) Alanine Aminotransferase (ALT/SGPT) 42 U/L (14-59) Alkaline Phosphatase 100 U/L (46-116) Troponin I Quantitative < 0.017 ng/mL (0.000-0.055) < 0.017 ng/mL (0.000-0.055) MT-Lfa-C-Type Natriuretic Peptide 137 pg/mL (0-124) Total Protein 7.0 g/dL (6.4-8.2) Albumin 3.2 g/dL (3.4-5.0) Albumin/Globulin Ratio 0.8 (1.0-1.7) Lipase 40 U/L (73-393) Urine Collection Type Unknown Urine Color Yellow Urine Clarity Cloudy Urine pH 6.5 (<5.0-8.0) Urine Specific [place] 1.015 (1.000-1.030) Urine Protein Negative mg/dL (NEG-TRACE) Urine Glucose (UA) Negative mg/dL (NEG) Urine Ketones (Stick) Negative mg/dL (NEG) Urine Blood Negative (NEG) Urine Nitrite Negative (NEG) Urine Bilirubin Negative (NEG) Urine Urobilinogen Dipstick 0.2 mg/dL (0.2 mg/dL) Urine Leukocyte Esterase Moderate (NEG) Urine RBC 0 /HPF (0-2) Urine WBC 5-10 /HPF (0-4) Urine Squamous Epithelial Cells Mod /LPF Urine Bacteria 0 /HPF (0-FEW) Urine Yeast Present /HPF Test 10/07/20 01:05 Troponin I Quantitative < 0.017 ng/mL (0.000-0.055) Laboratory Tests Test 10/06/20 19:15 10/06/20 19:55 10/06/20 20:05 10/06/20 22:00 White Blood Count 10.5 x10^3/uL (4.0-11.0) Red Blood Count 4.82 x10^6/uL (3.50-5.40) Hemoglobin 16.0 g/dL (12.0-15.5) Hematocrit 46.6 % (36.0-47.0) Mean Corpuscular Volume 97 fL (79-100) Mean Corpuscular Hemoglobin 33 pg (25-35) Mean Corpuscular Hemoglobin Concent 34 g/dL (31-37) Red Cell Distribution Width 14.5 % (11.5-14.5) Platelet Count 309 x10^3/uL (140-400) Neutrophils (%) (Auto) 62 % (31-73) Lymphocytes (%) (Auto) 28 % (24-48) Monocytes (%) (Auto) 7 % (0-9) Eosinophils (%) (Auto) 2 % (0-3) Basophils (%) (Auto) 1 % (0-3) Neutrophils # (Auto) 6.5 x10^3/uL (1.8-7.7) Lymphocytes # (Auto) 3.0 x10^3/uL (1.0-4.8) Monocytes # (Auto) 0.7 x10^3/uL (0.0-1.1) Eosinophils # (Auto) 0.2 x10^3/uL (0.0-0.7) Basophils # (Auto) 0.1 x10^3/uL (0.0-0.2) Prothrombin Time 11.9 SEC (11.7-14.0) Prothromb Time International Ratio 0.9 (0.8-1.1) Activated Partial Thromboplast Time 29 SEC (24-38) D-Dimer (Katherine) 0.40 ug/mlFEU (0.00-0.50) Sodium Level 143 mmol/L (136-145) Potassium Level 3.9 mmol/L (3.5-5.1) Chloride Level 105 mmol/L (98-107) Carbon Dioxide Level 29 mmol/L (21-32) Anion Gap 9 (6-14) Blood Urea Nitrogen 12 mg/dL (7-20) Creatinine 0.8 mg/dL (0.6-1.0) Estimated GFR (Cockcroft-Gault) 72.2 BUN/Creatinine Ratio 15 (6-20) Glucose Level 150 mg/dL (70-99) Calcium Level 8.9 mg/dL (8.5-10.1) Magnesium Level 2.1 mg/dL (1.8-2.4) Total Bilirubin 0.4 mg/dL (0.2-1.0) Aspartate Amino Transf (AST/SGOT) 32 U/L (15-37) Alanine Aminotransferase (ALT/SGPT) 42 U/L (14-59) Alkaline Phosphatase 100 U/L (46-116) Troponin I Quantitative < 0.017 ng/mL (0.000-0.055) < 0.017 ng/mL (0.000-0.055) MY-Dau-Y-Type Natriuretic Peptide 137 pg/mL (0-124) Total Protein 7.0 g/dL (6.4-8.2) Albumin 3.2 g/dL (3.4-5.0) Albumin/Globulin Ratio 0.8 (1.0-1.7) Lipase 40 U/L (73-393) Urine Collection Type Unknown Urine Color Yellow Urine Clarity Cloudy Urine pH 6.5 (<5.0-8.0) Urine Specific [place] 1.015 (1.000-1.030) Urine Protein Negative mg/dL (NEG-TRACE) Urine Glucose (UA) Negative mg/dL (NEG) Urine Ketones (Stick) Negative mg/dL (NEG) Urine Blood Negative (NEG) Urine Nitrite Negative (NEG) Urine Bilirubin Negative (NEG) Urine Urobilinogen Dipstick 0.2 mg/dL (0.2 mg/dL) Urine Leukocyte Esterase Moderate (NEG) Urine RBC 0 /HPF (0-2) Urine WBC 5-10 /HPF (0-4) Urine Squamous Epithelial Cells Mod /LPF Urine Bacteria 0 /HPF (0-FEW) Urine Yeast Present /HPF Test 10/07/20 01:05 Troponin I Quantitative < 0.017 ng/mL (0.000-0.055) Images Images Chest radiograph: The cardiomediastinal silhouette and pulmonary vessels are within normal limits. The lung and pleural spaces are clear. IMPRESSION: No acute cardiopulmonary process. VTE Prophylaxis Ordered VTE Prophylaxis Devices: No VTE Pharmacological Prophylaxi: Yes Assessment/Plan Assessment/Plan A/P: Chest pain -given her GI history this is almost certainly GERD. Given her age and smoking status high risk for ACS despite negative EKG and troponins cardiac imaging is indicated we'll follow up on echocardiogram and recommend outpatient stress testing with imaging if her echocardiogram is normal. 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 FEN - Cardiac diet PPX - Lovenox FULL CODE Dispo - observation, likely d/c home if echocardiogram WNL Justifications for Admission Other Justification ADEN KOHLI MD Oct 07, 2020 07:15
[2020-10-07] MEDS ORDERED: ALBUTEROL SULFATE 2.5 MG/3 ML NEBU. NEB SCH (07:30)
[2020-10-07 07:45] LABS: CHOLESTEROL/HDL RATIO 4.3
[2020-10-07] MEDS ORDERED: BUDESONIDE 0.5 MG/2 ML NEBU. NEB SCH (08:00)
[2020-10-07] MEDS: IPRATRPIUM/ALBUTEROL 0.5/2.5MG 3 ML NEBU. NEB SCH ×3 (08:16→15:40)
[2020-10-07] MEDS ORDERED: DOCUSATE SODIUM 100 MG CAPSULE. PO SCH (09:00)
[2020-10-07] MEDS ORDERED: CALCIUM CARB/VIT D3 500/200 TABLET. PO SCH (09:00)
[2020-10-07] MEDS ORDERED: CLOBETASOL EMOLLIENT 0.05% TOPICAL CREAM 15GM TUBE. TP SCH (09:00)
[2020-10-07] MEDS ORDERED: CHOLECALCIFEROL (VITAMIN D3) 1,000 UNIT TABLET PO SCH (09:00)
[2020-10-07] MEDS ORDERED: PANTOPRAZOLE 40 MG TABLET.DR. PO SCH (09:00)
[2020-10-07] MEDS ORDERED: DULoxetine HCL 30 MG CAPSULE.DR PO SCH (09:00)
[2020-10-07] MEDS ORDERED: OMEGA-3 FATTY ACIDS/FISH OIL 1,000 MG CAPSULE. PO SCH (09:00)
[2020-10-07] MEDS ORDERED: ASPIRIN CHEWABLE 81 MG TABLET. PO SCH (09:00)
[2020-10-07] MEDS: DICLOFENAC SODIUM 1% TOPICAL GEL 100GM TUBE. TP SCH ×2 (09:00→13:00)
[2020-10-07 11:00] VITALS: BP 147/69
[2020-10-07] MEDS: GABAPENTIN 300 MG CAPSULE. PO SCH ×2 (11:32→13:30)
--- NOTE | 2020-10-07 11:33 | NUR ---
SS following for discharge planning. SS reviewed pt chart and discussed with pt RN. Pt is from home and is currently on room air. Cardiology consulted and ECHO ordered. SS will continue to follow for discharge planning.
--- NOTE | 2020-10-07 12:37 | PDOC3 ---
Discharge Summary Visit Information Date of Admission: Oct 06, 2020 Date of Discharge: Oct 07, 2020 Admitting Diagnosis: Chest pain Final Diagnosis Problems Medical Problems: (1) Chest pain Status: Acute Brief Hospital Course Allergies Allergies Coded Allergies Type Severity Reaction Last Updated Verified Iodinated Contrast Media Allergy Severe 10/06/20 Yes doxycycline Allergy Intermediate 10/06/20 Yes Vital Signs Vital Signs Date Time Temp Pulse Resp B/P (MAP) Pulse Ox O2 Delivery O2 Flow Rate FiO2 10/07/20 12:30 Room Air 10/07/20 11:00 99.0 92 20 147/69 (95) 91 99.0 Lab Results Laboratory Tests Test 10/06/20 19:15 10/06/20 19:55 10/06/20 20:05 10/06/20 22:00 White Blood Count 10.5 x10^3/uL (4.0-11.0) Red Blood Count 4.82 x10^6/uL (3.50-5.40) Hemoglobin 16.0 g/dL (12.0-15.5) Hematocrit 46.6 % (36.0-47.0) Mean Corpuscular Volume 97 fL (79-100) Mean Corpuscular Hemoglobin 33 pg (25-35) Mean Corpuscular Hemoglobin Concent 34 g/dL (31-37) Red Cell Distribution Width 14.5 % (11.5-14.5) Platelet Count 309 x10^3/uL (140-400) Neutrophils (%) (Auto) 62 % (31-73) Lymphocytes (%) (Auto) 28 % (24-48) Monocytes (%) (Auto) 7 % (0-9) Eosinophils (%) (Auto) 2 % (0-3) Basophils (%) (Auto) 1 % (0-3) Neutrophils # (Auto) 6.5 x10^3/uL (1.8-7.7) Lymphocytes # (Auto) 3.0 x10^3/uL (1.0-4.8) Monocytes # (Auto) 0.7 x10^3/uL (0.0-1.1) Eosinophils # (Auto) 0.2 x10^3/uL (0.0-0.7) Basophils # (Auto) 0.1 x10^3/uL (0.0-0.2) Prothrombin Time 11.9 SEC (11.7-14.0) Prothromb Time International Ratio 0.9 (0.8-1.1) Activated Partial Thromboplast Time 29 SEC (24-38) D-Dimer (Katherine) 0.40 ug/mlFEU (0.00-0.50) Sodium Level 143 mmol/L (136-145) Potassium Level 3.9 mmol/L (3.5-5.1) Chloride Level 105 mmol/L (98-107) Carbon Dioxide Level 29 mmol/L (21-32) Anion Gap 9 (6-14) Blood Urea Nitrogen 12 mg/dL (7-20) Creatinine 0.8 mg/dL (0.6-1.0) Estimated GFR (Cockcroft-Gault) 72.2 BUN/Creatinine Ratio 15 (6-20) Glucose Level 150 mg/dL (70-99) Calcium Level 8.9 mg/dL (8.5-10.1) Magnesium Level 2.1 mg/dL (1.8-2.4) Total Bilirubin 0.4 mg/dL (0.2-1.0) Aspartate Amino Transf (AST/SGOT) 32 U/L (15-37) Alanine Aminotransferase (ALT/SGPT) 42 U/L (14-59) Alkaline Phosphatase 100 U/L (46-116) Troponin I Quantitative < 0.017 ng/mL (0.000-0.055) < 0.017 ng/mL (0.000-0.055) KG-Lij-S-Type Natriuretic Peptide 137 pg/mL (0-124) Total Protein 7.0 g/dL (6.4-8.2) Albumin 3.2 g/dL (3.4-5.0) Albumin/Globulin Ratio 0.8 (1.0-1.7) Lipase 40 U/L (73-393) Urine Collection Type Unknown Urine Color Yellow Urine Clarity Cloudy Urine pH 6.5 (<5.0-8.0) Urine Specific [place] 1.015 (1.000-1.030) Urine Protein Negative mg/dL (NEG-TRACE) Urine Glucose (UA) Negative mg/dL (NEG) Urine Ketones (Stick) Negative mg/dL (NEG) Urine Blood Negative (NEG) Urine Nitrite Negative (NEG) Urine Bilirubin Negative (NEG) Urine Urobilinogen Dipstick 0.2 mg/dL (0.2 mg/dL) Urine Leukocyte Esterase Moderate (NEG) Urine RBC 0 /HPF (0-2) Urine WBC 5-10 /HPF (0-4) Urine Squamous Epithelial Cells Mod /LPF Urine Bacteria 0 /HPF (0-FEW) Urine Yeast Present /HPF Test 10/07/20 01:05 10/07/20 06:20 Troponin I Quantitative < 0.017 ng/mL (0.000-0.055) Triglycerides Level 223 mg/dL (0-150) Cholesterol Level 160 mg/dL (0-200) LDL Cholesterol, Calculated 78 mg/dL (0-100) VLDL Cholesterol, Calculated 45 mg/dL (0-40) Non-HDL Cholesterol Calculated 123 mg/dL (0-129) HDL Cholesterol 37 mg/dL (40-60) Cholesterol/HDL Ratio 4.3 Thyroid Stimulating Hormone (TSH) 3.854 uIU/mL (0.358-3.74) Laboratory Tests Test 10/06/20 19:15 10/06/20 19:55 10/06/20 20:05 10/06/20 22:00 White Blood Count 10.5 x10^3/uL (4.0-11.0) Red Blood Count 4.82 x10^6/uL (3.50-5.40) Hemoglobin 16.0 g/dL (12.0-15.5) Hematocrit 46.6 % (36.0-47.0) Mean Corpuscular Volume 97 fL (79-100) Mean Corpuscular Hemoglobin 33 pg (25-35) Mean Corpuscular Hemoglobin Concent 34 g/dL (31-37) Red Cell Distribution Width 14.5 % (11.5-14.5) Platelet Count 309 x10^3/uL (140-400) Neutrophils (%) (Auto) 62 % (31-73) Lymphocytes (%) (Auto) 28 % (24-48) Monocytes (%) (Auto) 7 % (0-9) Eosinophils (%) (Auto) 2 % (0-3) Basophils (%) (Auto) 1 % (0-3) Neutrophils # (Auto) 6.5 x10^3/uL (1.8-7.7) Lymphocytes # (Auto) 3.0 x10^3/uL (1.0-4.8) Monocytes # (Auto) 0.7 x10^3/uL (0.0-1.1) Eosinophils # (Auto) 0.2 x10^3/uL (0.0-0.7) Basophils # (Auto) 0.1 x10^3/uL (0.0-0.2) Prothrombin Time 11.9 SEC (11.7-14.0) Prothromb Time International Ratio 0.9 (0.8-1.1) Activated Partial Thromboplast Time 29 SEC (24-38) D-Dimer (Katherine) 0.40 ug/mlFEU (0.00-0.50) Sodium Level 143 mmol/L (136-145) Potassium Level 3.9 mmol/L (3.5-5.1) Chloride Level 105 mmol/L (98-107) Carbon Dioxide Level 29 mmol/L (21-32) Anion Gap 9 (6-14) Blood Urea Nitrogen 12 mg/dL (7-20) Creatinine 0.8 mg/dL (0.6-1.0) Estimated GFR (Cockcroft-Gault) 72.2 BUN/Creatinine Ratio 15 (6-20) Glucose Level 150 mg/dL (70-99) Calcium Level 8.9 mg/dL (8.5-10.1) Magnesium Level 2.1 mg/dL (1.8-2.4) Total Bilirubin 0.4 mg/dL (0.2-1.0) Aspartate Amino Transf (AST/SGOT) 32 U/L (15-37) Alanine Aminotransferase (ALT/SGPT) 42 U/L (14-59) Alkaline Phosphatase 100 U/L (46-116) Troponin I Quantitative < 0.017 ng/mL (0.000-0.055) < 0.017 ng/mL (0.000-0.055) SF-Fmd-L-Type Natriuretic Peptide 137 pg/mL (0-124) Total Protein 7.0 g/dL (6.4-8.2) Albumin 3.2 g/dL (3.4-5.0) Albumin/Globulin Ratio 0.8 (1.0-1.7) Lipase 40 U/L (73-393) Urine Collection Type Unknown Urine Color Yellow Urine Clarity Cloudy Urine pH 6.5 (<5.0-8.0) Urine Specific [place] 1.015 (1.000-1.030) Urine Protein Negative mg/dL (NEG-TRACE) Urine Glucose (UA) Negative mg/dL (NEG) Urine Ketones (Stick) Negative mg/dL (NEG) Urine Blood Negative (NEG) Urine Nitrite Negative (NEG) Urine Bilirubin Negative (NEG) Urine Urobilinogen Dipstick 0.2 mg/dL (0.2 mg/dL) Urine Leukocyte Esterase Moderate (NEG) Urine RBC 0 /HPF (0-2) Urine WBC 5-10 /HPF (0-4) Urine Squamous Epithelial Cells Mod /LPF Urine Bacteria 0 /HPF (0-FEW) Urine Yeast Present /HPF Test 10/07/20 01:05 10/07/20 06:20 Troponin I Quantitative < 0.017 ng/mL (0.000-0.055) Triglycerides Level 223 mg/dL (0-150) Cholesterol Level 160 mg/dL (0-200) LDL Cholesterol, Calculated 78 mg/dL (0-100) VLDL Cholesterol, Calculated 45 mg/dL (0-40) Non-HDL Cholesterol Calculated 123 mg/dL (0-129) HDL Cholesterol 37 mg/dL (40-60) Cholesterol/HDL Ratio 4.3 Thyroid Stimulating Hormone (TSH) 3.854 uIU/mL (0.358-3.74) Brief Hospital Course Ms Martinez is a 65-year-old female with a history of high cholesterol, arthritis, smoker who presents to the emergency department with complaints of chest pain. She states the pain began 2 months ago, occurs while she is walking her dog and subsides when she rests. States the pain always last less than 5 minutes. She states the pain is a central chest sharpness with no radiation. She denies any symptoms associated with the pain. She states she has had a stress test many years ago and does not remember the results. She does have a family history of heart disease in her grandparents, parents, brother. She is a current every day smoker and has been for the past 40 years. She denies any recent long distance travel, personal history of malignancy, previous history of PE/DVT, or surgeries in the last 4 weeks. Denies trauma. Denies cough. Denies known exposure to COVID-19. 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 Initial troponins negative. CBC within normal laboratory limits coagulation studies within normal laboratory limits comprehensive metabolic panel within normal laboratory limits with exception of glucose elevated at 150 brain natruretic peptide 137. Urinalysis bland though it did have squamous epithelial cells and moderate leukocyte esterase. She does note historically that her mother and father both had a CVA near age 70. She also notes that she is taking Chantix to try to quit smoking. She also notes history of esophageal strictures and does see Dr. Brayan Hudson outpatient and has had previous esophageal dilation and does take a PPI for poorly controlled GERD. Admitted for further observation. Troponin x 3 negative. Consult from cardiology, recommended echocardiogram The left ventricular systolic function is normal. The Ejection Fraction is 60-65%. There is normal LV segmental wall motion. Transmitral Doppler flow pattern is Grade I-abnormal relaxation pattern. There is no evidence of significant pericardial effusion. Problem list: Chest pain -given her GI history this is almost certainly GERD. Given her age and smoking status high risk for ACS despite negative EKG and troponins cardiac imaging is indicated we'll follow up on echocardiogram and recommend outpatient stress testing with imaging as echo is normal. HLD - cont statin Smoker - counseled on cessation, offered therapy, on chantix currently Esophageal strictures -likely secondary to GERD advised to follow-up outpatient with her primary ambulance dispatcher Dr. Mccarthy HTN - cont home meds. Cardiology recommended carvedilol COPD - no inhaler, no shortness of breath Obesity - counseled on weight loss, diet, exercise Greater than 80 minutes spent on same day admit and d/c Discharge Information Condition at Discharge: Improved Follow Up: Weeks (1) Disposition/Orders: D/C to Home Scheduled Acetaminophen (Tylenol) 325 Mg Tablet, 1-2 TAB PO QID for arthritis, #60 Ref 2 (Reported) Entered as Reported by: ALYSSA CUNNINGHAM on 10/07/2036 Last Action: Continued on 10/07/20712 by ADEN KOHLI MD Aspirin (Aspirin) 81 Mg Tab.chew, 1 TAB PO DAILY for blood thinner, #30 Ref 3 (Reported) Entered as Reported by: ALYSSA CUNNINGHAM on 10/07/2036 Last Action: Continued on 10/07/20712 by ADEN KOHLI MD Atorvastatin Calcium (Atorvastatin Calcium) 40 Mg Tablet, Unknown Dose PO HS for FOR CHOLESTEROL, #30 Ref 0 (Reported) Entered as Reported by: Breann Wilson on 11/14/161408 Last Action: Continued on 10/07/20712 by ADEN KOHLI MD Calcium Carbonate/Vitamin D3 (Calcium 600 + Vit D 400 Softgl) 1 Each Capsule, 1 EACH PO DAILY for supplement, (Reported) Entered as Reported by: ALYSSA CUNNINGHAM on 10/07/2099 Last Action: Converted on 10/07/20712 by ADEN KOHLI MD Celecoxib (Celebrex) 200 Mg Capsule, 200 MG PO DAILY06 for arthritis pain for 30 Days, #30 Ref 0 (Reported) Entered as Reported by: Breann Wilson on 11/14/161408 Last Action: Edited on 10/07/2036 by ALYSSA CUNNINGHAM Clobetasol Propionate/Emoll (Clobetasol Emollient 0.05% Crm) 15 Gm Cream..g., 1 TP BID for lichen sclerosis, (Reported) Entered as Reported by: ALYSSA CUNNINGHAM on 10/07/2036 Last Action: Continued on 10/07/20712 by ADEN KOHLI MD Diclofenac Sodium (Voltaren) 100 Gm Gel..gram., 1 GM TP QID for pain for 30 Days, #1 Ref 0 (Reported) apply to affected area(s) Entered as Reported by: ALYSSA CUNNINGHAM on 10/07/2099 Last Action: Continued on 10/07/20712 by ADEN KOHLI MD Docusate Sodium (Colace) 100 Mg Capsule, 1 CAP PO BID for stool softener for 30 Days, #60 Ref 0 (Reported) Entered as Reported by: ALYSSA CUNNINGHAM on 10/07/2099 Last Action: Continued on 10/07/20712 by ADEN KOHLI MD Duloxetine Hcl (Duloxetine Hcl) 30 Mg Capsule.dr, 30 MG PO DAILY08 for paresthesia, (Reported) Entered as Reported by: ALYSSA CUNNINGHAM on 10/07/2036 Last Action: Continued on 10/07/20712 by ADEN KOHLI MD Estradiol (Estrogel) 50 Gm Gel..loading unit operator powder charging, 1 EDWARD TP QMTH for lichen sclerosis for 30 Days, #50 Ref 0 (Reported) Entered as Reported by: ALYSSA CUNNINGHAM on 10/07/2036 Last Action: Converted on 10/07/20712 by ADEN KOHLI MD Fluticasone/Umeclidin/Vilanter (Trelegy Ellipta 100-62.5-25) 1 Each Blst.w.dev, 1 PUFF INH DAILY for COPD, (Reported) Entered as Reported by: ALYSSA CUNNINGHAM on 10/07/2036 Last Action: Converted on 10/07/20712 by ADEN KOHLI MD [place]-3 Fatty Acids/Fish Oil (Fish Oil 1,000 Mg Softgel) 1 Each Capsule, 1 CAP PO DAILY for HLD for 30 Days, #30 Ref 0 (Reported) Entered as Reported by: ALYSSA CUNNINGHAM on 10/07/2099 Last Action: Continued on 10/07/20712 by ADEN KOHLI MD Pantoprazole Sodium (Pantoprazole Sodium) 40 Mg Tablet.dr, 1 TAB PO DAILY for GERD, (Reported) Entered as Reported by: ALYSSA CUNNINGHAM on 10/07/2036 Last Action: Continued on 10/07/20712 by ADEN KOHLI MD Varenicline Tartrate (Chantix) 1 Mg Tablet, 1 TAB PO BID for smoking cessation, (Reported) Entered as Reported by: ALYSSA CUNNINGHAM on 10/07/2036 Last Action: New Order on 10/07/2036 by ALYSSA CUNNINGHAM Vitamin D3/Vitamin K2 (D3 + K2 Dots 1,000 Units Tab) 1 Each Tab.rapdis, 1 TAB PO DAILY for supplement for 30 Days, #30 Ref 0 (Reported) Entered as Reported by: ALYSSA CUNNINGHAM on 10/07/2099 Last Action: Converted on 10/07/20712 by ADEN KOHLI MD Scheduled PRN Gabapentin (Gabapentin) 300 Mg Capsule, 2 CAP PO TID PRN for paresthesia, (Reported) Entered as Reported by: ALYSSA CUNNINGHAM on 10/07/2036 Last Action: Continued on 10/07/20712 by ADEN KOHLI MD Discontinued Medications Acetaminophen (Acetaminophen) 500 Mg Tablet, 1 TAB PO BID, #60 Ref 1 (Reported) Entered as Reported by: Breann Wilson on 11/14/16 5181 Last Action: Discontinued on 10/07/20 0037 by ALYSSA CUNNINGHAM Justicifation of Admission Dx: Justifications for Admission: Justification of Admission Dx: Yes ADEN KOHLI MD Oct 07, 2020 12:37
[2020-10-07] MEDS ORDERED: CARVEDILOL 6.25 MG TABLET. PO SCH (12:45)
--- NOTE | 2020-10-07 12:49 | PDOC2 ---
AYDE DUNNE HOME IMPROVEMENT ADVISOR 10/07/20 1249: CARDIAC CONSULT DATE OF CONSULT Date of Consult DATE: 10/07/20 TIME: 1000 REASON FOR CONSULT Reason for Consult: Chest pain REFERRING PHYSICIAN Referring Physician: Liu SOURCE Source: Chart review, Patient HISTORY OF PRESENT ILLNESS HISTORY OF PRESENT ILLNESS This is a pleasant 65 yo female admitted for complains of chest pain. Reports that she was walking her dog and started having lower sternal chest pressure. This is more in the epigastric region byt the xiphoid process. This onl lasted about 5 minutes better with rest. This is nonradiating. This occurs sporadically bascially trigerred with exertion but no associated, nausea, indigestion, SOA and this is somewhat reproducible with palpation. No globus sensation and and no heartburn as she admit having esophageal dilatation a yr ago. She takes PPI Denies any anosmia, ageusia, fever, chills, recent pulmonary infection. No falls or injury, heavy lifting. No intractable coughing. She is a smoker, and has HTN but does not take any meds but does take statin. No hx of DM, VTE nor CAD. She was told of right subclavian artery stenosis which she does not have symptoms and followed as an outpt through [facility] vascular. She does not follow any executor of estate and it has been remote since her last stress test. She recently just started using ASA. Denies any palpitations, dizziness. PAST MEDICAL HISTORY Cardiovascular: HTN, Hyperlipidemia, Other (murmur; subclavian artery stenosis) Pulmonary: COPD CENTRAL NERVOUS SYSTEM: Periperal neuropathy, Other (No pertinent history) GI: GERD, Other (esophageal stricture) Heme/Onc: No pertinent hx Hepatobiliary: No pertinent hx Psych: Anxiety Musculoskeletal: Osteoarthritis Rheumatologic: No pertinent hx Infectious disease: No pertinent hx ENT: No pertinent hx Renal/: No pertinent hx Endocrine: No pertinent hx Dermatology: No pertinent hx PAST SURGICAL HISTORY Past Surgical History: Appendectomy FAMILY HISTORY Family History: Coronary Artery Disease (father) SOCIAL HISTORY Smoke: 1 pack per day (>40 yrs) ALCOHOL: none Drugs: None Lives: with Family CURRENT MEDICATIONS CURRENT MEDICATIONS Current Medications Medications (Trade) Dose Ordered Sig/[place] Route PRN Reason Start Time Stop Time Status Last Admin Dose Admin Sodium Chloride 1,000 ml @ 1,000 mls/hr 1X ONCE IV 10/06/20 19:15 10/06/20 20:14 DC 10/06/20 20:07 Aspirin (Aspirin Chewable) 81 mg DAILY PO 10/07/20 09:00 10/07/20 11:31 Docusate Sodium (Colace) 100 mg BID PO 10/07/20 09:00 10/07/20 11:33 Duloxetine HCl (Cymbalta) 30 mg DAILY PO 10/07/20 09:00 10/07/20 11:32 Gabapentin (Neurontin) 600 mg TID PO 10/07/20 09:00 10/07/20 11:32 Fish Oil (Fish Oil) 1,000 mg DAILY PO 10/07/20 09:00 10/07/20 11:32 Pantoprazole Sodium (Protonix) 40 mg DAILY07 PO 10/07/20 09:00 10/07/20 11:32 Calcium/Vitamin D (Oscal D 500mg/ 200uts) 1 tab DAILY PO 10/07/20 09:00 10/07/20 11:32 Vitamin D (Vitamin D3) 1,000 unit DAILY PO 10/07/20 09:00 10/07/20 11:32 Albuterol/ Ipratropium (Duoneb) 3 ml RTQID NEB 10/07/20 08:00 10/07/20 12:29 Budesonide (Pulmicort) 0.5 mg RTBID NEB 10/07/20 08:00 10/07/20 08:16 ALLERGIES ALLERGIES: Coded Allergies: Iodinated Contrast Media (Verified Allergy, Severe, 10/06/20) doxycycline (Verified Allergy, Intermediate, 10/06/20) Joint swelling ROS Review of System 14 point ROS evaluated with pertinent positives noted per HPI PHYSICAL EXAM General: Alert, Oriented X3, Cooperative, No acute distress HEENT: Atraumatic, Mucous membr. moist/pink Lungs: Clear to auscultation, Normal air movement Heart: Regular rate (SR no ectopies), Normal S1, Normal S2, No murmurs Abdomen: Soft, No tenderness Extremities: No cyanosis, No edema, Normal pulses Skin: No breakdown, No significant lesion Neuro: Normal speech, Sensation intact Psych/Mental Status: Mental status NL, Mood NL MUSCULOSKELETAL: Osteoarthritic changes both hands VITALS/I&O VITALS/I&O: Vital Signs Date Time Temp Pulse Resp B/P (MAP) Pulse Ox O2 Delivery O2 Flow Rate FiO2 10/07/20 12:30 Room Air 10/07/20 11:00 99.0 92 20 147/69 (95) 91 99.0 I & O 10/06/20 10/06/20 10/07/20 15:00 23:00 07:00 Intake Total 1000 ml 240 ml Balance 1000 ml 240 ml LABS Lab: Laboratory Tests Test 10/06/20 19:15 10/06/20 19:55 10/06/20 20:05 10/06/20 22:00 White Blood Count 10.5 x10^3/uL (4.0-11.0) Red Blood Count 4.82 x10^6/uL (3.50-5.40) Hemoglobin 16.0 g/dL (12.0-15.5) H Hematocrit 46.6 % (36.0-47.0) Mean Corpuscular Volume 97 fL (79-100) Mean Corpuscular Hemoglobin 33 pg (25-35) Mean Corpuscular Hemoglobin Concent 34 g/dL (31-37) Red Cell Distribution Width 14.5 % (11.5-14.5) Platelet Count 309 x10^3/uL (140-400) Neutrophils (%) (Auto) 62 % (31-73) Lymphocytes (%) (Auto) 28 % (24-48) Monocytes (%) (Auto) 7 % (0-9) Eosinophils (%) (Auto) 2 % (0-3) Basophils (%) (Auto) 1 % (0-3) Neutrophils # (Auto) 6.5 x10^3/uL (1.8-7.7) Lymphocytes # (Auto) 3.0 x10^3/uL (1.0-4.8) Monocytes # (Auto) 0.7 x10^3/uL (0.0-1.1) Eosinophils # (Auto) 0.2 x10^3/uL (0.0-0.7) Basophils # (Auto) 0.1 x10^3/uL (0.0-0.2) Prothrombin Time 11.9 SEC (11.7-14.0) Prothrombin Time INR 0.9 (0.8-1.1) Activated Partial Thromboplast Time 29 SEC (24-38) D-Dimer (Katherine) 0.40 ug/mlFEU (0.00-0.50) Sodium Level 143 mmol/L (136-145) Potassium Level 3.9 mmol/L (3.5-5.1) Chloride Level 105 mmol/L (98-107) Carbon Dioxide Level 29 mmol/L (21-32) Anion Gap 9 (6-14) Blood Urea Nitrogen 12 mg/dL (7-20) Creatinine 0.8 mg/dL (0.6-1.0) Estimated GFR (Cockcroft-Gault) 72.2 BUN/Creatinine Ratio 15 (6-20) Glucose Level 150 mg/dL (70-99) H Calcium Level 8.9 mg/dL (8.5-10.1) Magnesium Level 2.1 mg/dL (1.8-2.4) Total Bilirubin 0.4 mg/dL (0.2-1.0) Aspartate Amino Transferase (AST) 32 U/L (15-37) Alanine Aminotransferase (ALT) 42 U/L (14-59) Alkaline Phosphatase 100 U/L (46-116) Troponin I Quantitative < 0.017 ng/mL (0.000-0.055) < 0.017 ng/mL (0.000-0.055) NC-Zcv-[id number]-Type Natriuretic Peptide 137 pg/mL (0-124) H Total Protein 7.0 g/dL (6.4-8.2) Albumin 3.2 g/dL (3.4-5.0) L Albumin/Globulin Ratio 0.8 (1.0-1.7) L Lipase 40 U/L (73-393) L Urine Collection Type Unknown Urine Color Yellow Urine Clarity Cloudy Urine pH 6.5 (<5.0-8.0) Urine Specific [place] 1.015 (1.000-1.030) Urine Protein Negative mg/dL (NEG-TRACE) Urine Glucose (UA) Negative mg/dL (NEG) Urine Ketones (Stick) Negative mg/dL (NEG) Urine Blood Negative (NEG) Urine Nitrite Negative (NEG) Urine Bilirubin Negative (NEG) Urine Urobilinogen Dipstick 0.2 mg/dL (0.2 mg/dL) Urine Leukocyte Esterase Moderate (NEG) Urine RBC 0 /HPF (0-2) Urine WBC 5-10 /HPF (0-4) Urine Squamous Epithelial Cells Mod /LPF Urine Bacteria 0 /HPF (0-FEW) Urine Yeast Present /HPF Test 10/07/20 01:05 10/07/20 06:20 Troponin I Quantitative < 0.017 ng/mL (0.000-0.055) Triglycerides Level 223 mg/dL (0-150) H Cholesterol Level 160 mg/dL (0-200) LDL Cholesterol, Calculated 78 mg/dL (0-100) VLDL Cholesterol, Calculated 45 mg/dL (0-40) H Non-HDL Cholesterol Calculated 123 mg/dL (0-129) HDL Cholesterol 37 mg/dL (40-60) L Cholesterol/HDL Ratio 4.3 Thyroid Stimulating Hormone (TSH) 3.854 uIU/mL (0.358-3.74) H Laboratory Tests 10/06/20 19:15 Laboratory Tests 10/06/20 19:55 ASSESSMENT/PLAN ASSESSMENT/PLAN 1. Atypical chest pain: possibly GI 2. HTN: labile episodes 3. COPD with tobaccoism: still smokes but just got started on chantix 4. Hx of esophageal stricture and dilatation a yr ago 5. HLP 6. Obesity: no NOEMI nor CHF symptoms 7. Metabolic syndrome Recommendations 1. TTE today. Check TSH 2. Continue home statin and ASA and PPI 3. Start on coreg. 4. Smoking cessation. Wt loss and diet modification. DASH diet. 5. Given her cardiac risk factors. if TTE shows no significnat changes then will plan for outpt treadmill MPI ANT VERGARA MD 10/07/201958: CARDIAC CONSULT ASSESSMENT/PLAN ASSESSMENT/PLAN Patient seen and examined. Agree with NUCLEAR RADIATION ENGINEER's assessment and plan. CP with atypical features and most probably GI etiology VT ruled out 2D echo showed normal LVF without any WMA Plan ischemic evaluation as outpatient Importance of smoking cessation reemphasized Thank you for your consultation AYDE DUNNE APRN Oct 07, 2020 12:49 ANT VERGARA MD Oct 07, 2020 19:59
--- NOTE | 2020-10-07 13:15 | CARD ---
MR#: [id number] Date of Study: 10/07/2020 Ordering Physician: AYDE DUNNE, Referring Physician: AYDE DUNNE Tech: Joyce Franco ARYAN APPROVED REPORT EXAM: Two-dimensional and M-mode echocardiogram with Doppler and color Doppler. Other Information Quality : Good INDICATION Chest Pain RISK FACTORS Obesity 2D DIMENSIONS RVDd2.1 (2.9-3.5cm)Left Atrium(2D)3.5 (1.6-4.0cm) IVSd1.3 (0.7-1.1cm)Aortic Root(2D)3.1 (2.0-3.7cm) LVDd4.9 (3.9-5.9cm)LVOT Diameter2.1 (1.8-2.4cm) PWd1.2 (0.7-1.1cm)LVDs2.7 (2.5-4.0cm) FS (%) 30.0 %SV83.4 ml LVEF(%)60.0 (>50%) Aortic Valve AoV Peak Tommie.135.7cm/sAoV VTI25.2cm AO Peak GR.7.4mmHgLVOT Peak Tommie.80.4cm/s LVOT VTI 14.64cmAO Mean GR.4mmHg SHY (VMAX)2.41de7PSV (VTI)2.00cm2 Mitral Valve MV E Zqbfojiq63.8cm/sMV DECEL PZRO967lc MV A Vvugclpx50.2cm/sMV UNW14do E/A Ratio0.7MVA (PHT)3.29cm2 TDI E/Lateral E'17.4E/Medial E'13.7 Pulmonary Vein S1 Tgkrcdkh25.0cm/sD2 Xtaoakka01.4cm/s LEFT VENTRICLE The left ventricle is normal size. There is mild concentric left ventricular hypertrophy. The left ve ntricular systolic function is normal. The Ejection Fraction is 60-65%. There is normal LV segmental wall motion. Transmitral Doppler flow pattern is Grade I-abnormal relaxation pattern. RIGHT VENTRICLE The right ventricle is normal size. The right ventricular systolic function is normal. ATRIA The left atrium size is normal. The right atrium size is normal. The interatrial septum is intact wit h no evidence for an atrial septal defect or patent foramen ovale as noted on 2-D or Doppler imaging. AORTIC VALVE The aortic valve is calcified but opens well. Doppler and Color Flow revealed no significant aortic r egurgitation. There is no significant aortic valvular stenosis. MITRAL VALVE The mitral valve is calcified but opens well. There is no evidence of mitral valve prolapse. There is no mitral valve stenosis. Doppler and Color Flow revealed no mitral valve regurgitation noted. TRICUSPID VALVE The tricuspid valve is normal in structure and function. Doppler and Color Flow revealed no tricuspid valve regurgitation noted. There is no tricuspid valve stenosis. PULMONIC VALVE The pulmonic valve is not well visualized. Doppler and Color Flow revealed no pulmonic valvular regur gitation. There is no pulmonic valvular stenosis. GREAT VESSELS The aortic root is normal in size. The ascending aorta is normal in size. The IVC is normal in size a nd collapses >50% with inspiration. PERICARDIAL EFFUSION There is no evidence of significant pericardial effusion. Critical Notification Critical Value: No <Conclusion> The left ventricular systolic function is normal. The Ejection Fraction is 60-65%. There is normal LV segmental wall motion. Transmitral Doppler flow pattern is Grade I-abnormal relaxation pattern. There is no evidence of significant pericardial effusion. Signed by : Mathieu Bhatt, Electronically Approved : 10/07/2020 13:14:39
--- NOTE | 2020-10-07 13:15 | NUR ---
RN NOTE this RN took over care for this patient and agrees with previous RN's assessments. will continue to monitor.
[2020-10-07 15:00] VITALS: BP 162/78
[2020-10-07] MEDS ORDERED: CARV6.2511 PO (16:27)
--- NOTE | 2020-10-07 17:07 | NUR ---
Discharge Note: [facility] [address] Discharge instructions and discharge home medications reviewed with Patient and a copy given. All questions have been answered and understanding verbalized. The following instructions and handouts were given: CP, coreg, smoking cessation, weightloss, DASH Discontinued lines and drains: Peripheral IV intact. Patient discharged to Home or Self Care with Self via Wheelchair
[2020-10-07] MEDS ORDERED: PSYLLIUM HUSK (SUGAR FREE) 1 PKT PACKET PO SCH (21:00)
[2020-10-07] MEDS ORDERED: ATORVASTATIN CALCIUM 40 MG TABLET. PO SCH (21:00)
[2020-10-08] MEDS ORDERED: ESTRADIOL TP SCH (16:00)
[2020-10-08 20:31] LABS: HEMOGLOBIN A1C 7.3 % (4.8-5.6)
== END 2020-10-07 16:54 | disposition home or self-care (01) ==
LOC: ER 19:03 → 2 SOUTH 21:45
PROVIDERS: ADMIT Internal Medicine; ATTEND Internal Medicine
DX: R07.89 Other chest pain (principal); E78.00 Pure hypercholesterolemia, unspecified; E78.5 Hyperlipidemia, unspecified; M19.90 Unspecified osteoarthritis, unspecified site; I10 Essential (primary) hypertension; I25.2 Old myocardial infarction; J44.9 Chronic obstructive pulmonary disease, unspecified; K21.9 Gastro-esophageal reflux disease without esophagitis; K22.2 Esophageal obstruction; E66.9 Obesity, unspecified; E88.81 Metabolic syndrome and other insulin resistance; F41.9 Anxiety disorder, unspecified; F17.210 Nicotine dependence, cigarettes, uncomplicated; Z90.49 Acquired absence of other specified parts of digestive tract; Z98.890 Other specified postprocedural states; Z79.82 Long term (current) use of aspirin; Z79.899 Other long term (current) drug therapy; Z68.36 Body mass index [BMI] 36.0-36.9, adult
CPT/HCPCS: 36415; 71045; 80053; 80061; 81001; 83036; 83690; 83735; 83880; 84443; 84484; 85025; 85379; 85610; 85730; 87086; 93005; 93306; 94640; 94760; 96360; 99285; G0378; J7030; J7626; G0379